=== PATIENT | female | born 1945 | race Caucasian/White ===

== ENCOUNTER 2024-01-04 12:18 | Emergency (ER) | payer BC ==
[~2024-01-04] VITALS: Ht 162.6 cm; Wt 61.4 kg
[2024-01-04 12:21] VITALS: BP 163/69; PULSE 79; RESP 16; TEMP 98.7; O2SAT 98
[2024-01-04] MEDS ORDERED: CALCIUM CITRATE (17:05)
[2024-01-04] MEDS ORDERED: CARB30DR9 EACHEYE (17:05)
[2024-01-04] MEDS ORDERED: MULT-1085 PO (17:05)
[2024-01-04] MEDS ORDERED: DIGEST GOLD (17:05)
[2024-01-04] MEDS ORDERED: FOLIC ACID (17:05)
[2024-01-04] MEDS ORDERED: FLAX OIL (17:05)
[2024-01-04] MEDS ORDERED: VIT B (17:05)
[2024-01-04] MEDS ORDERED: VIT C (17:05)
[2024-01-04] MEDS ORDERED: VIT D DROPS (17:05)
[2024-01-04] MEDS ORDERED: GRAPE SEED (17:05)
[2024-01-04] MEDS ORDERED: COLOSTRUM (17:05)
[2024-01-04] MEDS ORDERED: [UNRECOGNIZED DRUG - OTHER] (17:05)
[2024-01-04] MEDS ORDERED: [UNRECOGNIZED DRUG - OTHER] (17:05)
[2024-01-04] MEDS ORDERED: CLOB30CR12 TOP (17:05)
[2024-01-04] MEDS ORDERED: [UNRECOGNIZED DRUG - OTHER] (17:05)
[2024-01-04] MEDS ORDERED: ZINC (17:05)
[2024-01-04] MEDS ORDERED: MELO-100 PO (17:08)
== END 2024-01-04 13:03 | disposition left against medical advice (07) ==
LOC: ER 12:19
DX: M25.562 Pain in left knee (principal); Z88.5 Allergy status to narcotic agent
CPT/HCPCS: 73564; 99283

== ENCOUNTER 2024-01-04 15:59 | Emergency (ER) | payer BC ==
[~2024-01-04] VITALS: Ht 162.6 cm; Wt 65.0 kg
[2024-01-04] MEDS ORDERED: CLOB30CR12 TOP (17:05)
[2024-01-04] MEDS ORDERED: ZINC PO (17:05)
[2024-01-04] MEDS ORDERED: COLOSTRUM (17:05)
[2024-01-04] MEDS ORDERED: FOLIC ACID PO (17:05)
[2024-01-04] MEDS ORDERED: MULT-1085 PO (17:05)
[2024-01-04] MEDS ORDERED: DIGEST GOLD (17:05)
[2024-01-04] MEDS ORDERED: [UNRECOGNIZED DRUG - OTHER] PO (17:05)
[2024-01-04] MEDS ORDERED: CALCIUM CITRATE (17:05)
[2024-01-04] MEDS ORDERED: VIT B (17:05)
[2024-01-04] MEDS ORDERED: CARB30DR9 EACHEYE (17:05)
[2024-01-04] MEDS ORDERED: GRAPE SEED PO (17:05)
[2024-01-04] MEDS ORDERED: VIT C (17:05)
[2024-01-04] MEDS ORDERED: FLAX OIL (17:05)
[2024-01-04] MEDS ORDERED: [UNRECOGNIZED DRUG - OTHER] (17:05)
[2024-01-04] MEDS ORDERED: VIT D DROPS PO (17:05)
[2024-01-04] MEDS ORDERED: [UNRECOGNIZED DRUG - OTHER] (17:05)
[2024-01-04] MEDS ORDERED: MELO-100 PO (17:08)
[2024-01-04] MEDS: dexamethasone sod phosphate 10mg/ml inj IM STA (17:12)
[2024-01-04] MEDS: ketorolac trometh. 30mg/ml inj. IM ONE (17:13)
[2024-01-04] MEDS: HYDROcodone/acetaminophen 5mg/325mg tablet PO ONE (17:14)
[2024-01-04 17:29] VITALS: BP 165/71; PULSE 75; RESP 16; TEMP 98.3; O2SAT 98
[2024-01-10] MEDS ORDERED: ASCO500T19 PO (15:09)
[2024-01-10] MEDS ORDERED: [UNRECOGNIZED DRUG - OTHER] PO (15:09)
[2024-01-10] MEDS ORDERED: CALC250T2 PO (15:09)
[2024-01-10] MEDS ORDERED: COLO400C PO (15:09)
[2024-01-10] MEDS ORDERED: FLAXOIL PO (15:09)
[2024-01-10] MEDS ORDERED: DIGEST GOLD PO (15:09)
== END 2024-01-04 17:20 | disposition home or self-care (01) ==
LOC: ER 16:00
DX: M25.462 Effusion, left knee (principal); M25.562 Pain in left knee; M17.12 Unilateral primary osteoarthritis, left knee; Z91.09 Other allergy status, other than to drugs and biological substances; Z88.5 Allergy status to narcotic agent; Z79.899 Other long term (current) drug therapy
CPT/HCPCS: 96372; 99284; J1100; J1885

== ENCOUNTER 2024-01-11 06:02 | Observation (INO) | payer BC ==
[2024-01-04 16:36] LABS: BASOPHILS % (AUTO) 0.2 % (0-1); EOSINOPHILS % (AUTO) 0.6 % (0-6); LYMPHOCYTES # (AUTO) 0.6 X10'3 (1.1-4.8); LYMPHOCYTES % (AUTO) 10.4 % (21-51); MEAN CORPUSCULAR HGB CONC 33.6 g/dL (33.0-36.5); MEAN CORPUSCULAR VOLUME 86.4 FL (78-98); MEAN PLATELET VOLUME 9.3 FL (7.4-10.4); MONOCYTES # (AUTO) 0.5 X10'3 (0-0.9); MONOCYTES % (AUTO) 8.1 % (2-12); NEUTROPHILS # (AUTO) 4.9 X10'3 (1.8-7.7); NEUTROPHILS % (AUTO) 80.7 % (42-75); PRE OP HEMATOCRIT 41.4 % (35.0-45.0); PRE OP HEMOGLOBIN 13.9 g/dL (12.0-16.0); PRE OP PLATELET COUNT 190 X10'3 (140-440); RED BLOOD COUNT 4.78 X10'6 (4.20-5.60)
[2024-01-04 16:54] LABS: ALBUMIN 4.1 G/DL (3.4-5.0); ALBUMIN/GLOBULIN RATIO 1.4 (1.1-1.5); ALKALINE PHOSPHATASE 115 IU/L (46-116); BLOOD UREA NITROGEN 15 MG/DL (7-18); BUN/CREATININE RATIO 21.4 (10.0-20.0); CALCIUM 9.4 MG/DL (8.5-10.1); CHLORIDE 100 MMOL/L (99-107); PRE OP ALT 24 U/L (30-65); PRE OP ANION GAP 8 (8-16); PRE OP AST 15 U/L (10-37); PRE OP BILIRUB, TOTAL 0.7 MG/DL (0.0-1.0); PRE OP GLUCOSE 120 MG/DL (70-104); PRE OP POTASSIUM 4.4 MMOL/L (3.4-5.1); PRE OP PROTIME 10.5 SECONDS (9.0-12.0); PRE OP SODIUM 138 MMOL/L (135-145); TOTAL CARBON DIOXIDE 30.5 MMOL/L (24-32); eGFR 81 ML/MIN
[~2024-01-11] VITALS: Ht 167.6 cm; Wt 62.0 kg
[2024-01-11] VITALS (24 sets, daily range): BP systolic 144–181; BP diastolic 67–88; PULSE 0–84; RESP 10–22; TEMP 96.3–98; O2SAT 96–100
[~2024-01-11 06:02] MED LIST: ASCO500T19 PO; CALC250T2 PO; CALCIUM CITRATE; CARB30DR9 EACHEYE; CLOB30CR12 TOP; COLO400C PO; COLOSTRUM; DIGEST GOLD; DIGEST GOLD PO; FLAX OIL; FLAXOIL PO; FOLIC ACID PO; GRAPE SEED PO; MELO-100 PO; MULT-1085 PO; VIT B; VIT C; VIT D DROPS PO; ZINC PO; [UNRECOGNIZED DRUG - OTHER]; [UNRECOGNIZED DRUG - OTHER]; [UNRECOGNIZED DRUG - OTHER] PO; [UNRECOGNIZED DRUG - OTHER] PO
[2024-01-11] MEDS: methylene blue (5mg/ml) 50mg/10ml ampul IV ONE ×2 (06:45→09:00)
[2024-01-11] MEDS: BUPIVAcaine/PF 2.5mg/ml (0.25%) 10ml vial ONE (06:46)
[2024-01-11] MEDS: BUPIVACAINE liposomal/PF 13.3 MG/ML vial IM ONE (06:46)
[2024-01-11] MEDS: cefazolin 2gm/D5W 100mL 100 ML IV ONE (07:01)
[2024-01-11] MEDS: ringers solution, lacted 1,000 ML IV SCH ×3 (07:01→11:05)
[2024-01-11] MEDS: famotidine 20mg tablet PO ONE (07:03)
[2024-01-11] MEDS ORDERED: fentaNYL/PF 50MCG/1 ML 2ML syringe ONE (08:29)
[2024-01-11] MEDS: BUPIVAcaine/PF 2.5 mg/ml (0.25%) 30ml vial IJ ONE (09:23)
[2024-01-11] MEDS ORDERED: labetalol 20mg/4ml (5mg/ml) syringe IV PRN (10:00)
[2024-01-11] MEDS ORDERED: morphine 4 MG/ML inj SYRINge IV PRN (10:00)
[2024-01-11] MEDS ORDERED: ondansetron/PF 4mg/2ml inj IV PRN ×2 (10:00→11:05)
[2024-01-11] MEDS ORDERED: enalaprilat dihydrate 2.5mg/2ml vial IV PRN (10:00)
[2024-01-11] MEDS ORDERED: proCHLORperazine 10 MG/2 ml inj IV PRN (10:00)
[2024-01-11] MEDS ORDERED: meperidine/PF 25mg/ml syringe IV PRN ×2 (10:00)
[2024-01-11] MEDS ORDERED: HYDROcodone/acetaminophen 5mg/325mg tablet PO PRN (11:05)
[2024-01-11] MEDS ORDERED: morphine 2 MG/ML inj. syringe IV PRN (11:05)
[2024-01-11] MEDS: meperidine/PF 25mg/ml syringe IV PRN (11:12)
[2024-01-11] MEDS: acetaminophen 1,000mg/100ml IV 100 ML IV SCH (11:19)
[2024-01-11] MEDS: morphine 2 MG/ML inj. syringe IV PRN (11:44)
[2024-01-11] MEDS: ceFAZolin 1GM/D5W- ADD-VANTAGE 50 ML IV SCH (17:09)
[2024-01-11] MEDS: cefazolin 2gm/D5W 100mL 100 ML IV SCH (23:31)
[2024-01-12] MEDS: HYDROcodone/acetaminophen 10/325mg tab PO PRN (00:23)
[2024-01-12 02:06] VITALS: BP 134/59; PULSE 65; RESP 16; TEMP 97.5; O2SAT 97
[2024-01-12 06:00] VITALS: BP 155/64; PULSE 71; RESP 15; TEMP 97.6; O2SAT 99
[2024-01-12 10:30] VITALS: RESP 18; O2SAT 92
[2024-01-12 12:37] VITALS: BP 145/54; PULSE 66; RESP 18; TEMP 98.7; O2SAT 97
== END 2024-01-12 14:21 | disposition home or self-care (01) ==
LOC: PAS 06:02 → SUR 3N 12:24 → PAS 22:20 → INTOOBSV 22:22 → SUR 3N 22:22
PROVIDERS: ADMIT Surgery; ATTEND Surgery
DX: C50.412 Malignant neoplasm of upper-outer quadrant of left female breast (principal); C18.9 Malignant neoplasm of colon, unspecified; F41.9 Anxiety disorder, unspecified; Z90.11 Acquired absence of right breast and nipple; Z79.899 Other long term (current) drug therapy
CPT/HCPCS: 19303; 36415; 38525; 38900; 80053; 82948; 85025; 85610; 85730; 86885; 86900; 86901; 87081; 93005; 96365; 96366; 96375; C9290; G0378; J0131; J0690; J2175; J2270; J3010; J3490; J7120; Q9968; 88307; 88342; A4215; A4615; A4618; A6253; A6449; A7000; C9250